=== PATIENT | male | born 1955 | race Caucasian/White ===

== ENCOUNTER → 2017-06-04 | Outpatient (CLI) | payer BC | LOC: FIMAGING 10:42 | PROVIDERS: ATTEND Physician Assistant Surgical | DX: C79.31 Secondary malignant neoplasm of brain (principal); R56.9 Unspecified convulsions; K76.9 Liver disease, unspecified ==

== ENCOUNTER → 2017-06-09 | Outpatient (CLI) | payer OTHER ==
[~2017-06-09] MED LIST: GADOBUTROL 10 ML VIAL IVP ONE
== END ==
LOC: FIMAGING 11:36
PROVIDERS: ATTEND Neurological Surgery
DX: K76.9 Liver disease, unspecified (principal); M48.061 Spinal stenosis, lumbar region without neurogenic claudication
CPT/HCPCS: A9585

== ENCOUNTER 2017-06-13 05:31 | Inpatient (IN) | payer OTHER ==
[2017-06-13] MEDS ORDERED: GADOBUTROL 10 ML VIAL IVP ONE (05:59)
[2017-06-13] MEDS ORDERED: CEFUROXIME 1,500 MG in NS 50 ML IV ONE (06:00)
[2017-06-13 06:15] LABS: PLATELET COUNT 225 10^3/uL (150-400)
[2017-06-13] MEDS ORDERED: LR 1,000 ML IV ONE (06:20)
[2017-06-13 06:24] LABS: INR 0.95 (0.83-1.16); PROTIME(PATIENT) 12.9 SEC (12.0-15.0)
--- NOTE | 2017-06-13 06:43 | PDHPUP ---
History & Physical Update H&P update statement: This history and physical update is based on an assessment of the patient which was completed after admission or registration (within 24 hours), but prior to the surgery/procedure. H&P update: H&P reviewed & patient examined, no change in patient's condition since H&P completed
[2017-06-13] MEDS ORDERED: BUPIVACAINE 0.25% 30 ML SDV ONE (06:44)
[2017-06-13] MEDS ORDERED: THROMBIN (BOVINE) 5,000 UNIT VIAL TP ONE (06:44)
[2017-06-13] MEDS ORDERED: GENTAMICIN SULFATE 80 MG/2 ML VIAL ONE ×4 (06:44→09:35)
[2017-06-13] MEDS ORDERED: AVITENE POWDER 1 GM JAR TP ONE ×3 (06:44→09:23)
[2017-06-13] MEDS ORDERED: BACITRACIN ZINC 14.2 GM OINTTUBE TP ONE (06:44)
[2017-06-13] MEDS ORDERED: POVIDONE-IODINE 30 GM OINTTUBE TP ONE (06:45)
[2017-06-13] MEDS ORDERED: MIDAZOLAM 2 MG/2 ML VIAL IVP ONE (07:00)
--- NOTE | 2017-06-13 07:00 | PDANEPAE ---
ANE History of Present Illness craniotomy ANE Past Medical History - Cardiovascular History Hx Hypertension: No Hx Arrhythmias: No Hx Chest Pain: No Hx Coronary Artery / Peripheral Vascular Disease: No Hx CHF / Valvular Disease: No Hx Palpitations: No - Pulmonary History Hx COPD: No Hx Asthma/Reactive Airway Disease: No Hx Recent Upper Respiratory Infection: No Hx Oxygen in Use at Home: No Hx Sleep Apnea: No Sleep Apnea Screening Result - Last Documented: Negative - Neurologic History Hx Cerebrovascular Accident: No Hx Seizures: No Hx Dementia: No Neurologic History Comment: Brain tumor. aphasia - Endocrine History Hx Diabetes: No Hypothyroid: No Hyperthyroid: No Obesity: mild - Renal History Hx Renal Disorders: No - Liver History Hx Hepatic Disorders: No - Neurological & Psychiatric Hx Hx Neurological and Psychiatric Disorders: No - Cancer History Hx Cancer: No - Congenital Disorder History Hx Congenital Disorders: No - GI History GERD: no Hx Gastrointestinal Disorders: No - Chronic Pain History Chronic Pain: No - Surgical History Prior Surgeries: bilateral ANGELA. hernia repair. appendectomy ANE Review of Systems Review of Systems: - Exercise capacity METS (RN): 5 METS ANE Patient History - Allergies Allergies/Adverse Reactions: Iodinated Contrast- Oral and IV Dye Allergy (Verified 06/10/17 12:59) - Home Medications Home Medications: Aspirin 81mg (*) 06/10/17 [Last Taken Unknown] Ibuprofen 06/10/17 [Last Taken Unknown] Simvastatin 06/10/17 [Last Taken Unknown] - Smoking Hx Smoking Status: Former smoker - Family Anes Hx Family Hx Anesthesia Complications: none ANE Labs/Vital Signs - Labs Result Diagrams: 06/13/17 06:10 06/13/17 06:10 - Vital Signs Height: 185.42 cm Weight: 95.254 kg ANE Physical Exam - Airway Neck exam: FROM Mallampati Score: Class 3 Mouth exam: poor dentition - Pulmonary Pulmonary: clear to auscultation - Cardiovascular Cardiovascular: regular rate and rhythym - ASA Status ASA Status: III ANE Anesthesia Plan Anesthesia Plan: general endotracheal anesthesia Lines/Monitors: arterial line
[2017-06-13] MEDS ORDERED: DEXAMETHASONE 4 MG/ML VIAL ONE (07:07)
[2017-06-13] MEDS ORDERED: PROPOFOL 200 MG/20 ML VIAL ONE ×3 (07:07→09:39)
[2017-06-13] MEDS ORDERED: CHLORHEXIDINE GLUC HIBICLENS 118 ML BTL TP ONE (07:54)
[2017-06-13] MEDS ORDERED: PROPOFOL/EMULSION 500 MG/50 ML BOTTLE IV ONE (08:15)
[2017-06-13] MEDS ORDERED: ONDANSETRON 4 MG/2 ML VIAL ONE ×2 (09:05→09:44)
[2017-06-13] MEDS ORDERED: HYDROGEN PEROXIDE 236 ML BOTTLE TP ONE (09:26)
[2017-06-13] MEDS ORDERED: PHENYLEPHRINE HCL 100 MCG/ML SYR ONE (10:05)
[2017-06-13] MEDS ORDERED: NALOXONE HCL 0.4 MG/ML INJ IVP PRN (10:38)
[2017-06-13] MEDS: LABETALOL HCL 5 MG/ML 20 ML MDV IVP PRN ×2 (10:40→10:59)
--- NOTE | 2017-06-13 10:45 | NEUSURGPN ---
Date of Surgery: 06/13/17 Post Op Day: 0 Assessment/Plan: s/p left pteryonal craniotomy resection mass prelim path glioma to ICU MRI in am Drain to bulb suction Keppra 750BID Decadron Q1 hour neuro checks Keep SBP<140 Call for change in neuro status Subjective: Doing well, speech fluent, pain well controlled Objective: AandO, PERRL, no facial asymmetry, speech fluent, follows all commands, MAEWx 4 5/5 Drain to bulb suction Incision c/d/i Neuro Check Frequency: Q1 Urinary Catheter in Place: Yes Urinary Catheter Indication: Other (Use Comment) (remove in am) Neurosurgery Physical Exam - Vitals, I&O, Labs I and O 06/12/17 06/13/17 06/14/17 05:59 05:59 05:59 Weight 95.254 kg Vital Signs Temp Pulse Resp BP Pulse Ox 36.6 C 76 16 164/98 H 94 06/13/17 07:08 06/13/17 07:08 06/13/17 07:08 06/13/17 07:08 06/13/17 07:08 Laboratory Results 06/13/17 06:10 06/13/17 06:10 ICD10 Worksheet Patient Problems: Problems Problem Status Onset Glioma Acute - ICD10 Problem Qualifiers (1) Glioma
[2017-06-13] MEDS ORDERED: ONDANSETRON 4 MG/2 ML VIAL IVP PRN (10:58)
[2017-06-13] MEDS ORDERED: BISACODYL 10 MG SUPP PR PRN (10:58)
[2017-06-13] MEDS ORDERED: ONDANSETRON DISINTEGRATING 4 MG TAB PO PRN (10:58)
[2017-06-13] MEDS ORDERED: niCARdipine/NACL 200 ML IV PRN (10:58)
[2017-06-13] MEDS ORDERED: MAG HYDROX/AL HYDROX/SIMETH 30 ML UDCUP PO PRN (10:58)
[2017-06-13] MEDS ORDERED: MAGNESIUM HYDROXIDE 30 ML UDCUP PO PRN (10:58)
[2017-06-13] MEDS ORDERED: LACTULOSE 20 GM/30 ML UDCUP PO PRN (10:58)
[2017-06-13] MEDS ORDERED: fentaNYL 100 MCG/2 ML INJ ONE (11:00)
[2017-06-13] MEDS ORDERED: NS W/ 20 KCl/L 1,000 ML IV SCH (11:00)
[2017-06-13] MEDS: fentaNYL 100 MCG/2 ML INJ IVP PRN ×2 (11:02→11:09)
--- NOTE | 2017-06-13 11:16 | GOP ---
[f rep st] OPERATIVE REPORT DATE OF OPERATION: 06/13/2017 SURGEON: Mikayla Harrison DO NEUROSURGEON: Mikayla Harrison DO. STOCK HANGER: Kishore Dunn PA-C. PREOPERATIVE DIAGNOSIS: Left temporal mass. POSTOPERATIVE DIAGNOSIS: 1. Left temporal mass. 2. Primary brain mass glioma, unknown grade. 3. Seizure. PROCEDURE PERFORMED: Stealth stereotactic image guidance and Sonopet. FINDINGS: SPECIMENS: To Pathology. ESTIMATED BLOOD LOSS: 50 mL. INDICATIONS: This is a 62-year-old male who has had intermittent focal aphasia, likely a seizure, fr om a left temporal enhancing lesion. He underwent a metastatic workup, which was negative. He has a new, slightly smaller, daughter lesion deeper into the anterior temporal lobe. He elected to move f orward with resection biopsy. DESCRIPTION OF PROCEDURE: He was identified, consented. Sites were marked. Brought to the operatin g room, anesthetized under general endotracheal anesthesia. Head was placed in a Devi headholder to 80 pounds of pressure. Bump was placed under the shoulder. Patient was positioned. All pressur e points were appropriately padded. The [employer] machine was registered to approximately 2 mm of accu racy, and the linear-shaped craniotomy incision was planned based upon the preoperative plan. Hair w as clipped with the OR clippers. He was prepped and draped in the usual sterile fashion. Incision was anesthetized with 0.5% Marcaine with epinephrine. Incision was made with a 10 blade. H emostasis was obtained with bipolar cautery. We used the Bovie to dissect through the temporalis fas tejal, and then Sophy clips were placed on the scalp. Retracting the temporalis muscle anterior and po sterior, we marked the craniotomy based upon the preoperative plan, and a 14 mm [place] bur hole was performed. We then extended this With a B1 with a footplate to create a craniotomy flap. This was p laced on the back table. The wire pass was used to create dural tack-up stitches. We then used 4-0 Nurolon to create circumferential dural tack-ups. We then planned the dural opening based upon the p reoperative plan, and the dura was tented with a 4-0 Nurolon, and the dura was opened with a 15 blade . This was extended with a Shae and then, finally, Ily[place]um scissors, reflected anteriorly. The corridor for where the tumor reached the surface was just between some vessels of the sylvian fis sure, so corticotomy was marked based upon the preoperative plan using Stealth, and bipolar was used to create a corticotomy, an 11 blade and then, using the sucker and bipolar, we came down into the mor. This was sent for pathology, and further tumor was removed. We then used the CUSA to stereotac tically resect, checking the borders of all the radiographic tumor, as well as follow down to what ap peared to be this very, very small new enhancing daughter lesion. Once we had fully resected, using the Sonopet on appropriate settings, meticulous hemostasis was obtained with Gelfoam, Avitene, and so me peroxide to attempt to protect the sylvian vessels, which were not violated. Once meticulous hemo stasis had been obtained, a single layer of Surgicel was placed. After copiously irrigating with several liters of gentamicin-infused saline, we then reapproximated t he dura; however, it had retracted, and so I reapproximated the dura with 4-0 Nurolon and then placed DuraGen, replaced the bone flap with Synthes plates and 4 mm screws, and reapproximated the fascia o f the temporalis fascia with 2-0 Vicryl pop-offs. Trocar to drain out superiorly, placed it in the s ubgaleal space. Closed the galea with 2-0 Vicryl pop-offs. The skin was closed with radha. The d rain was sutured in with a 2-0 Prolene and placed to bulb suction. Neuromonitoring remained stable throughout. Both SSEPs and motors on low levels, given he had had no motor seizure, and he was stable throughout from an anesthesia perspective. He was removed from the [place] headholder after dressing the wound with bacitracin and Telfa, stapled down. Again, there were no complications. The neuromonitoring was stable. FLUID: 750 mL crystalloid. URINE OUTPUT: Not recorded. DRAINS: One HERNANDO in the subgaleal space to bulb suction. COMPLICATIONS: None. /[id number]/MODL
[2017-06-13] MEDS: levETIRAcetam 500 MG TAB PO SCH ×2 (12:18→20:12)
[2017-06-13] MEDS: DEXAMETHASONE 4 MG/ML VIAL IVP SCH ×2 (12:34→17:48)
[2017-06-13] MEDS: HYDROmorphONE/DILAUDID 1 MG/ML INJ IVP PRN ×3 (12:37→20:00)
--- NOTE | 2017-06-13 13:56 | POSTANESTH ---
Post Anesthetic Evaluation Cardiovascular Status: Normal, Stable Respiratory Status: Normal, Stable Level of Consciousness/Mental Status: Can Participate in Eval Pain Control: Adequate, Prn Tx Ordered Nausea/Vomiting Control: Adequate, Prn Tx Ordered Complications Possibly Related to Anesthesia: None Noted
[2017-06-13] MEDS: CEFUROXIME 1,500 MG in NS 50 ML IV SCH ×2 (13:58→21:35)
[2017-06-13] MEDS ORDERED: POLYETHYLENE GLYCOL 3350 17 GM PKT PO PRN (16:00)
[2017-06-13] MEDS: OXYCODONE/APAP 5/325 TAB PO PRN ×2 (16:36→20:33)
[2017-06-13] MEDS: FAMOTIDINE 20 MG TAB PO SCH (20:12)
[2017-06-13] MEDS: SENNOSIDES/DOCUSATE SODIUM TAB PO SCH (20:12)
[2017-06-13] MEDS ORDERED: FAMOTIDINE 20 MG/NACL 50 ML IV SCH (21:00)
[2017-06-14] MEDS: DEXAMETHASONE 4 MG/ML VIAL IVP SCH ×3 (00:18→11:36)
[2017-06-14] MEDS: oxyCODONE IR 5 MG TAB PO PRN ×2 (00:18→04:36)
[2017-06-14 06:46] LABS: PLATELET COUNT 210 10^3/uL (150-400)
[2017-06-14] MEDS ORDERED: OXYCODONE/APAP 5/325 TAB PO PRN (07:36)
[2017-06-14] MEDS: diphenhydrAMINE 25 MG CAP PO PRN ×2 (08:24→11:36)
--- NOTE | 2017-06-14 08:31 | NEUSURGPN ---
Date of Surgery: 06/13/17 Post Op Day: 1 Assessment/Plan: s/p left pteryonal craniotomy resection mass prelim path glioma POD#1 -Post op MRI pending this am -Patient itching with oxycodone, will change to PO Dilaudid -Keppra 750BID -Decadron -PT/OT/ST eval and treat -HERNANDO dc'd, tip intact, insertion site sutured -Patient neurologically stable throughout the night -Transfer to floor -Q4hr neuro checks -Patient discussed with Dr Harrison Please call neurosurgery with any questions/concerns Subjective: Patient doing well, itching with PO medications Objective: AxO x3 PERRLA EOMI CN2-12 grossly intact No droop 5/5 BUE, BLE Dressing CDI HERNANDO present Neuro Check Frequency: per routine Urinary Catheter in Place: No Catheter Insertion Date: 06/13/17 - Physician Discussed Patient with : [facility] Physical Exam - Vitals, I&O, Labs I and O 06/13/17 06/14/17 06/15/17 05:59 05:59 05:59 Intake Total 4576 Output Total 5213 Balance -637 Weight 95.25 kg Intake: Oral (ml) 2630 IV Intake (ml) 800 IV Infused (ml) 1146 Cefuroxime 1,500 mg In Ns 55 50 ml @ 200 mls/hr IV Q8HRS IVAN Rx#:[id number] NS W/ 20 KCl/L 1,000 ml @ 953 100 mls/hr IV CONT IVAN Rx#:[id number] niCARdipine/NACL 200 ml @ 138 Titrate IV PRN PRN Rx#: [id number] Output: Urine (ml) 5140 Catheter 5140 Estimated Blood Loss (ml) 50 HERNANDO Drain Output (ml) 23 Left Head Dallin Rhodes 8 Right Head Dallin Rhodes 15 Other: Intake Quantity Yes Sufficient Vital Signs Temp Pulse Resp BP Pulse Ox 36.8 C 71 17 139/80 H 92 06/14/17 08:00 06/14/17 08:00 06/14/17 08:00 06/14/17 08:00 06/14/17 08:00 Laboratory Results 06/14/17 06:20 06/14/17 06:20 ICD10 Worksheet Patient Problems: Problems Problem Status Onset Glioma Acute
[2017-06-14] MEDS ORDERED: GADOBUTROL 10 ML VIAL IVP ONE (08:48)
[2017-06-14] MEDS: SENNOSIDES/DOCUSATE SODIUM TAB PO SCH ×2 (09:22→20:43)
[2017-06-14] MEDS: levETIRAcetam 500 MG TAB PO SCH ×2 (09:22→20:42)
[2017-06-14] MEDS: FAMOTIDINE 20 MG TAB PO SCH ×2 (09:22→20:44)
[2017-06-14] MEDS: HYDROmorphONE/DILAUDID 2 MG TAB PO PRN ×3 (11:36→20:44)
[2017-06-14] MEDS ORDERED: ALBUMIN 5% 500 ML BOTTLE IV ONE (14:03)
--- NOTE | 2017-06-14 14:56 | ASMTCMCOM ---
CM Note CM Note Notes: 57 year old male admitted for a brain mass-glioma. POD# 1 of a crani and tumor resect. Therapies to eval. CM to follow for possible discharge needs. Date Signed: 06/14/2017 02:56 PM Electronically Signed By:Carmita Carpio LCSW
[2017-06-14] MEDS ORDERED: *MD ORDERING ONLY-DEXAMETHASONE TAPER PO SCH (16:30)
[2017-06-14] MEDS: DEXAMETHASONE 4 MG TAB PO SCH (17:00)
[2017-06-14] MEDS: ACETAMINOPHEN 325 MG TAB PO PRN (20:43)
[2017-06-15] MEDS: DEXAMETHASONE 4 MG TAB PO SCH ×2 (00:51→07:48)
[2017-06-15] MEDS: HYDROmorphONE/DILAUDID 2 MG TAB PO PRN ×2 (00:53→07:58)
[2017-06-15 06:49] VITALS: BP 140/82; PULSE 66; RESP 18; TEMP 97.7; O2SAT 91
[2017-06-15] MEDS: SENNOSIDES/DOCUSATE SODIUM TAB PO SCH (07:46)
[2017-06-15] MEDS: levETIRAcetam 500 MG TAB PO SCH (07:58)
[2017-06-15] MEDS: FAMOTIDINE 20 MG TAB PO SCH (07:59)
[2017-06-15] MEDS ORDERED: TETRAHYDROZOLINE 0.05% 15 ML OPHT.BTL OP PRN (08:00)
[2017-06-15] MEDS: ACETAMINOPHEN 325 MG TAB PO PRN (08:01)
--- NOTE | 2017-06-15 08:01 | NEUSURGPN ---
Date of Surgery: 06/13/17 Post Op Day: 2 Assessment/Plan: s/p left pteryonal craniotomy resection mass prelim path glioma POD#2 -Post op MRI with minimal residual tumor, 1.5cm acute cortical infarct-reviewed by Dr Harrison -Patients pain controlled with PO Dilaudid -Continue Keppra 750BID -Oral Decadron taper -PT/OT/ST eval and treat -Dressing removed, radha present, ok for patient to shower today -Patient neurologically stable throughout the night -Patient will dc home today -Patient discussed with Dr Harrison Please call neurosurgery with any questions/concerns Subjective: Patient denies any complaints, pain well controlled Objective: AxO x3 PERRLA EOMI CN2-12 grossly intact No droop 5/5 BUE, BLE Incision CDI Neuro Check Frequency: per routine Urinary Catheter in Place: No Catheter Insertion Date: 06/13/17 - Physician Discussed Patient with : [facility] Physical Exam - Vitals, I&O, Labs I and O 06/14/17 06/15/17 06/16/17 05:59 05:59 05:59 Intake Total 4576 Output Total 5213 300 Balance -637 -300 Weight 95.25 kg Intake: Oral (ml) 2630 IV Intake (ml) 800 IV Infused (ml) 1146 Cefuroxime 1,500 mg In Ns 55 50 ml @ 200 mls/hr IV Q8HRS IVAN Rx#:[id number] NS W/ 20 KCl/L 1,000 ml @ 953 100 mls/hr IV CONT IVAN Rx#:[id number] niCARdipine/NACL 200 ml @ 138 Titrate IV PRN PRN Rx#: [id number] Output: Urine (ml) 5140 300 Catheter 5140 Urinal 300 Estimated Blood Loss (ml) 50 HERNANDO Drain Output (ml) 23 Left Head Dallin Rhodes 8 Right Head Dallin Rhodes 15 Other: Intake Quantity Yes Yes Sufficient Number of Voids Toilet 2 Vital Signs Temp Pulse Resp BP Pulse Ox 36.5 C 66 18 140/82 H 91 L 06/15/17 06:00 06/15/17 06:00 06/15/17 06:00 06/15/17 06:00 06/15/17 06:00 Laboratory Results 06/14/17 06:20 06/14/17 06:20 ICD10 Worksheet Patient Problems: Problems Problem Status Onset Glioma Acute
[2017-06-15] MEDS ORDERED: DICLOFENAC SODIUM 75 MG TAB PO SCH (09:00)
[2017-06-15] MEDS ORDERED: Herbals/Supplements -Info Only PO SCH (09:00)
[2017-06-15] MEDS ORDERED: MULTIVITAMINS 1 EACH TAB PO SCH (09:00)
[2017-06-15] MEDS ORDERED: DEXAMETHASONE 4 MG TAB PO SCH (16:30)
[2017-06-15] MEDS ORDERED: NON-FORMULARY NEW DRUG (Simvastatin [Zocor] 20 MG) PO SCH (21:00)
[2017-06-15] MEDS ORDERED: ATORVASTATIN CALCIUM 40 MG TAB PO SCH (21:00)
[2017-06-16] MEDS ORDERED: ENOXAPARIN 40 MG/0.4 ML SYR SC SCH (09:00)
[2017-06-16] MEDS ORDERED: DEXAMETHASONE 2 MG TAB PO SCH (16:45)
[2017-06-17] MEDS ORDERED: DEXAMETHASONE 2 MG TAB PO SCH (16:45)
[2017-06-18] MEDS ORDERED: DEXAMETHASONE 2 MG TAB PO SCH (16:45)
== END 2017-06-15 08:49 | disposition home or self-care (01) | DRG 25 ==
LOC: F2N 05:31 → F3N 05:31 → F2N 11:55
PROVIDERS: ADMIT Neurological Surgery; ATTEND Neurological Surgery
PROC: 4A1004G Monitoring of Central Nervous Electrical Activity, Intraoperative, Open Approach (ICD-10-PCS; principal; 2017-06-13 07:15)
PROC: 00B00ZX Excision of Brain, Open Approach, Diagnostic (ICD-10-PCS; principal; 2017-06-13 07:15)
DX: C71.2 Malignant neoplasm of temporal lobe (principal); I63.9 Cerebral infarction, unspecified; Z96.643 Presence of artificial hip joint, bilateral
CPT/HCPCS: 88323-90; 88342; 92523-GN; 97161-GP; 97165-GO; A9585; C1713; J0171; J0697; J1100; J1170; J1200; J2250; J2370; J2405; J2704; J3010; P9041

== ENCOUNTER 2017-07-13 08:24 | Inpatient (IN) | payer OTHER ==
[~2017-07-13 08:24] MED LIST changes: +CEFUROXIME 1,500 MG in STERILE WATER INJ 17 ML IV ONE; -GADOBUTROL 10 ML VIAL IVP ONE
[2017-07-13] MEDS ORDERED: BUPIVACAINE 0.25% 30 ML SDV ONE (09:05)
[2017-07-13] MEDS ORDERED: THROMBIN (BOVINE) 20,000 UNIT VIAL TP ONE (09:05)
[2017-07-13] MEDS ORDERED: BACITRACIN ZINC 14.2 GM OINTTUBE TP ONE (09:05)
[2017-07-13] MEDS ORDERED: GENTAMICIN SULFATE 80 MG/2 ML VIAL ONE ×3 (09:06→16:28)
[2017-07-13] MEDS ORDERED: POVIDONE-IODINE 30 GM OINTTUBE TP ONE (09:06)
[2017-07-13] MEDS ORDERED: AVITENE POWDER 1 GM JAR TP ONE (09:06)
[2017-07-13] MEDS ORDERED: MANNITOL 20% 100 GM/500 ML BAG IV ONE (09:06)
[2017-07-13] MEDS ORDERED: LIDOCAINE 1% 2 ML INJ ONE (11:54)
[2017-07-13] MEDS ORDERED: GADOBUTROL 10 ML VIAL IVP ONE (11:55)
[2017-07-13 12:29] LABS: INR 1.02 (0.83-1.16); PROTIME(PATIENT) 13.6 SEC (12.0-15.0)
[2017-07-13] MEDS ORDERED: LR 1,000 ML IV ONE (12:34)
[2017-07-13] MEDS ORDERED: LIDOCAINE 1% 2 ML INJ ID PRN (12:34)
--- NOTE | 2017-07-13 13:12 | PDHPUP ---
History & Physical Update H&P update statement: This history and physical update is based on an assessment of the patient which was completed after admission or registration (within 24 hours), but prior to the surgery/procedure. H&P update: H&P reviewed & patient examined H&P changes: Patient's MRI brain completed at Dr. oSlorio's office for cyberknife radiation demonstrated recurrence of brain mass within 2-3 weeks of surgery. Patient has been doing well with no new symptoms. His case was discussed at [facility] tumor board and it was recommended to proceed with re-do craniotomy for resection of the mass due to the recurrence. The patient was call and plan discussed and agreed upon. He is here today to proceed with left re-do craniotomy for re-resection of mass. Risks, benefits, procedure, were discussed in detail. Patient and is aware that speech may be affected. Patient has signed consents and is ready to proceed.
[2017-07-13] MEDS ORDERED: MIDAZOLAM 2 MG/2 ML VIAL IVP ONE (13:14)
[2017-07-13] MEDS ORDERED: MIDAZOLAM 2 MG/2 ML VIAL ONE (13:15)
--- NOTE | 2017-07-13 13:16 | PDANEPAE ---
ANE History of Present Illness L craniotomy for reexcision tumor ANE Past Medical History - Cardiovascular History Hx Hypertension: No Hx Arrhythmias: No Hx Chest Pain: No Hx Coronary Artery / Peripheral Vascular Disease: No Hx CHF / Valvular Disease: No Hx Palpitations: No - Pulmonary History Hx COPD: No Hx Asthma/Reactive Airway Disease: No Hx Recent Upper Respiratory Infection: No Hx Oxygen in Use at Home: No Hx Sleep Apnea: No Sleep Apnea Screening Result - Last Documented: Negative - Neurologic History Hx Cerebrovascular Accident: No Hx Seizures: No Hx Dementia: No Neurologic History Comment: Brain tumor.pt reports no siezures. aphasia - Endocrine History Hx Diabetes: No - Renal History Hx Renal Disorders: No - Liver History Hx Hepatic Disorders: No - Neurological & Psychiatric Hx Hx Neurological and Psychiatric Disorders: Yes Neurological / Psychiatric History Comment: brain tumor - Cancer History Hx Cancer: Yes Cancer History Comment: brain tumor - Congenital Disorder History Hx Congenital Disorders: No - GI History Hx Gastrointestinal Disorders: No - Other Health History Other Health History: missing teeth - Chronic Pain History Chronic Pain: No - Surgical History Prior Surgeries: bilateral ANGELA. hernia repair. appendectomy ANE Review of Systems Review of systems is: negative Review of Systems: - Exercise capacity METS (RN): 5 METS ANE Patient History - Allergies Allergies/Adverse Reactions: Iodinated Contrast- Oral and IV Dye Allergy (Verified 06/10/17 12:59) - Home Medications Home medications: home medication list seen and reviewed Home Medications: Herbals/Supplements -Info Only 1 ea PO DAILY 06/13/17 [Last Taken Unknown] Multivitamins [Multivitamin (*)] 1 each PO DAILY 06/13/17 [Last Taken 2 Weeks Ago ~05/30/17] Tetrahydrozoline 0.05% [Visine (*)] 1 drop OP DAILY PRN 06/13/17 [Last Taken Unknown] - NPO status NPO Status: no food or drink >8 hours - Anes Hx Anes Hx: no prior problems - Smoking Hx Smoking Status: Former smoker - Family Anes Hx Family Anes Hx: none Family Hx Anesthesia Complications: none ANE Labs/Vital Signs - Vital Signs Height: 185.42 cm Weight: 92.986 kg ANE Physical Exam - Airway Neck exam: FROM Mallampati Score: Class 2 Mouth exam: poor dentition - Pulmonary Pulmonary: no respiratory distress - Cardiovascular Cardiovascular: regular rate and rhythym - ASA Status ASA Status: III ANE Anesthesia Plan Anesthesia Plan: general endotracheal anesthesia Lines/Monitors: arterial line
[2017-07-13] MEDS ORDERED: LIDOCAINE 2% 100 MG/5 ML SYR ONE (13:33)
[2017-07-13] MEDS ORDERED: ROCURONIUM 50 MG/5 ML VIAL ONE (13:33)
[2017-07-13] MEDS ORDERED: DEXAMETHASONE 4 MG/ML VIAL ONE (13:33)
[2017-07-13] MEDS ORDERED: ONDANSETRON 4 MG/2 ML VIAL ONE (13:33)
[2017-07-13] MEDS ORDERED: PROPOFOL 200 MG/20 ML VIAL ONE ×2 (13:34→14:49)
[2017-07-13] MEDS ORDERED: fentaNYL 250 MCG/5 ML INJ ONE (13:34)
[2017-07-13] MEDS ORDERED: PROPOFOL/EMULSION 500 MG/50 ML BOTTLE IV ONE (14:12)
[2017-07-13] MEDS ORDERED: levETIRAcetam 1000MG/NACL 100 ML IV ONE (14:30)
[2017-07-13] MEDS ORDERED: ROCURONIUM 100 MG/10 ML VIAL ONE (14:31)
[2017-07-13] MEDS ORDERED: REMIFENTANIL HCL 1 MG VIAL ONE (14:49)
[2017-07-13] MEDS ORDERED: DEXAMETHASONE 4 MG/ML VIAL IVP PRN (15:37)
[2017-07-13] MEDS ORDERED: ONDANSETRON 4 MG/2 ML VIAL IVP PRN ×2 (15:37→17:29)
[2017-07-13] MEDS ORDERED: NALOXONE HCL 0.4 MG/ML INJ IVP PRN (15:37)
[2017-07-13] MEDS ORDERED: MEPERIDINE 25 MG/ML SYR IVP PRN (15:37)
[2017-07-13] MEDS ORDERED: ACETAMINOPHEN 500 MG TAB PO PRN (15:37)
[2017-07-13] MEDS ORDERED: HYDROCODONE/APAP 5/325 TAB PO PRN (15:37)
[2017-07-13] MEDS ORDERED: PROMETHAZINE HCL 25 MG/ML INJ IVP PRN (15:37)
[2017-07-13] MEDS ORDERED: OXYCODONE/APAP 5/325 TAB PO PRN (15:37)
[2017-07-13] MEDS ORDERED: LABETALOL HCL 5 MG/ML 20 ML MDV IVP PRN (15:37)
--- NOTE | 2017-07-13 15:40 | POSTANESTH ---
Post Anesthetic Evaluation Cardiovascular Status: Normal, Stable, Similar to Pre-Op Cond Respiratory Status: Normal, Stable, Similar to Pre-op Cond. Level of Consciousness/Mental Status: Can Participate in Eval, Mildly Sleepy, Arousable Pain Control: Adequate, Prn Tx Ordered Nausea/Vomiting Control: Adequate, Prn Tx Ordered Complications Possibly Related to Anesthesia: None Noted
[2017-07-13] MEDS ORDERED: MAGNESIUM HYDROXIDE 30 ML UDCUP PO PRN (17:29)
[2017-07-13] MEDS ORDERED: POLYETHYLENE GLYCOL 3350 17 GM PKT PO PRN (17:29)
[2017-07-13] MEDS ORDERED: LACTULOSE 20 GM/30 ML UDCUP PO PRN (17:29)
[2017-07-13] MEDS ORDERED: TETRAHYDROZOLINE 0.05% 15 ML OPHT.BTL OP PRN (17:29)
[2017-07-13] MEDS ORDERED: ACETAMINOPHEN 325 MG TAB PO PRN (17:29)
[2017-07-13] MEDS ORDERED: BISACODYL 10 MG SUPP PR PRN (17:29)
[2017-07-13] MEDS ORDERED: NS W/ 20 KCl/L 1,000 ML IV SCH (17:30)
[2017-07-13] MEDS ORDERED: *MD ORDERING ONLY-DEXAMETHASONE TAPER PO SCH (17:30)
--- NOTE | 2017-07-13 17:38 | GOP ---
[f rep st] OPERATIVE REPORT DATE OF OPERATION: SURGEON: Mikayla Harrison DO NEUROSURGEON: Mikayla Harrison DO HANDLE TURNER: GÓMEZ Martínez. 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 POSTOPERATIVE DIAGNOSIS: 1. 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 2. Seizure disorder. PROCEDURE PERFORMED: FINDINGS: SPECIMENS: To frozen and permanent. ESTIMATED BLOOD LOSS: 150 mL. INDICATIONS: This is a 62-year-old male who approximately 2-1/2 weeks ago had resection of what was a grade 3 IDH1 wild-type tumor. He had just a wisp of what was questionably residual, and on repeat MRI at 2 weeks had a significant recurrence. DESCRIPTION OF PROCEDURE: He was brought to the operating room for re-resection he was identified, c onsented. Sites were marked. Brought to the operating room, anesthetized under general endotracheal tube anesthesia. Head was placed in a Devi longwall headgate operator at 80 pounds of pressure. A bump was pl aced under the shoulder. Head was affixed in the fiducials were registered to 1.6 mm of accuracy and verified to be accurate. The incision site was remarked. Hair was clipped with the OR clippers. He was prepped and draped in the usual sterile fashion. Incision was reanesthetized with 0.5% Marcaine with epinephrine. Incisi on was made with a 10 blade, and using the Bovie and the periosteal elevator retractor, we resected t he scar tissue, retracting the scalp anteriorly and posteriorly placing cerebellar retractors. We di d have to extend the incision slightly to give us better anterior access. We then used a screwdriver to remove the screws from the cranial fixation plate. Removed the plate and meticulous hemostasis w as obtained. We then cut the stay sutures and retracted the dura anteriorly. As per the Ruth cortez, we did need to extend the anterior craniotomy for planned anterior temporal lobectomy, and so B1 with footplate was placed, and this extension was performed and the bone edges were appropriately marked for reapproximation. We then resected the remainder of the dura, as it was well invested in t he sylvian vessels, peeling this off gently with the and once we had access, using the Stea lth we demarcated the superior border and the posterior border of the tumor and then placed a ruler a nterior to the anterior tip and this was approximately 5 cm of anterior temporal tip. Unfortunately, this tumor was immediately spanning and surrounded by the sylvian vessels, and so we very gently and under microscope, skeletonized the sylvian vessels using the SONOPET to resect tumor after having se nt a frozen. The frozen did come back as GBM. Once we had completely performed a 5 cm anterior temp oral lobectomy, and there was a portion that came to the inferior frontal gyrus, this portion was res ected as well. We skeletonized the sylvian vessels and using Stealth verified that we had fully rese cted all of the enhancing region as well as the anterior temporal tip, meticulous hemostasis was obta ined with Gelfoam and Avitene. Once there was meticulous hemostasis and copious irrigation with gent amicin-infused saline irrigated completely clear, we lined the entire remainder of the cavity with a single layer of Surgicel. Placed DuraGen as a replacement for the dura that had been resected, and r eplaced the bone flap with 4 and 5 mm titanium plates and screws. We then copiously irrigated again with gentamicin-infused saline, trocar to drain out inferiorly. Closed the temporalis fascia with 2- 0 Vicryl pop-offs, subcutaneous layer 2-0 Vicryl pop-offs. The skin was closed with 3-0 running nylo n. The drain was sutured with 2-0 Vicryl pop-off placed to bulb suction. Wound was dressed with christian itracin and Telfa stapled down. Patient was removed from Devi longwall headgate operator. Neuro monitoring rem ained stable throughout the entire resection. FLUIDS: 1 L crystalloid. URINE OUTPUT: 350 mL. DRAINS: One HERNANDO in the subfascial space to bulb suction. COMPLICATIONS: None. /[id number]/MODL
[2017-07-13] MEDS ORDERED: fentaNYL 100 MCG/2 ML INJ ONE ×4 (17:39→19:12)
[2017-07-13] MEDS ORDERED: HYDROmorphONE/DILAUDID 1 MG/ML INJ ONE ×3 (17:39→19:12)
[2017-07-13] MEDS: fentaNYL 100 MCG/2 ML INJ IVP PRN ×5 (17:43→19:18)
[2017-07-13] MEDS: HYDROmorphONE/DILAUDID 1 MG/ML INJ IVP PRN ×8 (17:44→23:26)
--- NOTE | 2017-07-13 17:44 | POSTOPPROG ---
Post Op Note Date of Operation: 07/13/17 Surgeon: Mikayla Harrison Red Leader: Blanca Keys PA-C Anesthesiologist: Devang Lemons Anesthesia: GET(General Endotracheal) Pre-op Diagnosis: Brain mass Post-op Diagnosis: Brain mass Procedure: Re-do left craniotomy for resection of mass Inf/Abcess present in the surg proc area at time of surgery?: No Depth: Deep Incisional (Fascial) EBL: 100-500 Drains: Dallin Rhodes Plan Plan: 62 yo male s/p left re-do craniotomy for resection of mass - neuro checks every hour - maintain SBP < 140 - HERNANDO drain subgaleal - postop MRI brain in am - Keppra - Decadron taper - follow path - PT/OT/DIRECTOR OF ACCREDITATION - SCDs/TEDs, Lovenox to start POD#3 - please contact neurosurgery with any changes in neuro status/exam Exam Patient seen in recovery. Awake. Alert. PERRL Following commands, COLÓN Incision with dressing c/d/i
[2017-07-13] MEDS ORDERED: LABETALOL HCL 5 MG/ML 20 ML MDV ONE (18:10)
[2017-07-13] MEDS: niCARdipine/NACL 200 ML IV PRN ×2 (19:52→23:23)
[2017-07-13] MEDS: levETIRAcetam 500 MG TAB PO SCH (20:16)
[2017-07-13] MEDS: DEXAMETHASONE 4 MG TAB PO SCH (20:18)
[2017-07-13] MEDS: FAMOTIDINE 20 MG TAB PO SCH (20:19)
[2017-07-13] MEDS: SENNOSIDES/DOCUSATE SODIUM TAB PO SCH (20:56)
[2017-07-13] MEDS: CEFUROXIME 1,500 MG in STERILE WATER INJ 17 ML IV SCH (21:40)
[2017-07-14] MEDS: HYDROmorphONE/DILAUDID 2 MG TAB PO PRN ×5 (00:07→20:05)
[2017-07-14] MEDS: DEXAMETHASONE 4 MG TAB PO SCH ×4 (02:08→20:05)
[2017-07-14 03:18] LABS: PLATELET COUNT 237 10^3/uL (150-400)
[2017-07-14] MEDS: CEFUROXIME 1,500 MG in STERILE WATER INJ 17 ML IV SCH (06:22)
[2017-07-14] MEDS: levETIRAcetam 500 MG TAB PO SCH ×2 (08:58→20:06)
[2017-07-14] MEDS: SENNOSIDES/DOCUSATE SODIUM TAB PO SCH ×2 (08:59→20:06)
[2017-07-14] MEDS: FAMOTIDINE 20 MG TAB PO SCH ×2 (08:59→20:05)
--- NOTE | 2017-07-14 10:07 | SOAPPROG ---
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 Objective: Vital Signs Temp Pulse Resp BP Pulse Ox 36.5 C 74 14 120/58 L 94 07/14/17 05:00 07/14/17 06:00 07/14/17 06:00 07/14/17 06:00 07/14/17 06:00 Laboratory Results 07/14/17 03:10 07/14/17 03:10 07/13/17 07/14/17 07/15/17 05:59 05:59 05:59 Intake Total 3810 Output Total 3170 Balance 640 PT 13.6 SEC (12.0-15.0) 07/13/17 12:07 INR 1.02 (0.83-1.16) 07/13/17 12:07 awake, alert PERRL, no facial droop mixed receptive and expressive dysphasia MINI x 4 C/D/I ICD10 Worksheet Patient Problems: Problems Problem Status Onset Glioma Acute
[2017-07-14] MEDS ORDERED: LABETALOL HCL 5 MG/ML 20 ML MDV IV PRN (11:10)
[2017-07-14] MEDS: HYDROmorphONE/DILAUDID 1 MG/ML INJ IVP PRN (12:06)
[2017-07-14] MEDS ORDERED: GADOBUTROL 10 ML VIAL IVP ONE (12:36)
--- NOTE | 2017-07-14 14:51 | ASMTCASEMG ---
Living Arrangements What is your living Answers: With Spouse arrangement? Who do you live with? Type Of Residence What kind of residence do Answers: House you live in? Discharge Plan Comments Coordination Status Comments Notes: Patient is a 62yo male who was admitted for a re-do craniotomy as a result of the mass reoccurrance. OT/PT/SPL have been ordered. OT is recommending inpatient rehab. Awaiting PT/SPL evals. D/C plan TBD. CM will follow. Date Signed: 07/14/2017 02:50 PM Electronically Signed By:Norma Hand LCSW
--- NOTE | 2017-07-14 19:18 | GCON ---
[f rep st] CONSULTATION CRITICAL CARE CONSULTATION. DATE OF CONSULTATION: 07/14/2017 REASON FOR CONSULTATION: Intensive care unit evaluation and medical management following repeat cran iotomy for a glioblastoma. HISTORY: The patient is a 62-year-old gentleman who presented a little over a month ago with neurolo gic symptoms. Workup showed a left temporal mass. This was operated on 1 month ago with craniotomy and removal of the mass. 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 He recently had an outpatient MRI for CyberKnife radiation treatment. This demonstrated rapid recurrence of the brain mass several weeks after surgery. He was thus readmitted for surgical planning. This again documented recurrence. He was taken to the operating room. He has had some ne urologic deficits, especially word-finding issues postoperatively. Followup MRI done this morning sh ows postoperative changes, no residual abnormal enhancement, and some changes suggesting acute infarc t posterior to the operative bed. PAST MEDICAL HISTORY: Largely unremarkable. There is no history of hypertension, heart disease, tu g disease, etc. MEDICATION: He has been on no medications other than Keppra and p.r.n. medications prior to admiss n. SOCIAL HISTORY: The patient is , lives in [place]. He did smoke cigarettes in the past bu t quit smoking over 10 years ago. Significant alcohol is negative. FAMILY HISTORY: Negative/noncontributory. REVIEW OF SYSTEMS: Unobtainable currently. Reviewed in his previous records, negative. PHYSICAL EXAMINATION: GENERAL: Reveals a gentleman who appears to be resting comfortably in bed. V ITAL SIGNS: Blood pressure is 140/80, heart rate 65 with sinus rhythm on the monitor. Respiratory r ate 18. He is on room air, saturations are 91%. HEENT: He definitely has word-finding problems and cannot complete sentences. Pupils appear equal. CHEST: Clear. There are no abnormal sounds. HEA RT: Regular in rate and rhythm without significant murmurs or gallops. ABDOMEN: Soft, nontender. Bowel sounds are present. EXTREMITIES: Unremarkable for edema, cords, or tenderness. He appears to move all extremities equally. 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 Decreased coordination is suspect ed related to the right upper extremity. He was not ambulated. NEUROLOGIC: Speech is garbled, alth ough he is quite alert, and tries to respond. LABORATORY: White blood cell count is 8,900, hematocrit 34, platelets 237,000. PT and PTT were norm al on admission. Basic metabolic panel is within normal limits. Glucose is 138. 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 Status post 2nd resection . Hemodynamically he is stable. Neurologically, he has word-finding problems and appears to have zaragoza d a stroke posterior to the surgical bed. This may be related to spasm (?). PLAN: The patient will be kept in the intensive care unit. Neuro checks will be maintained. Steroi ds will be continued. Appropriate pain control will be maintained. Enoxaparin will be started on bruary 10. He will be on SCDs until then. Pepcid is being given. He has labetalol and nicardipine for blood pressure if needed. Keppra will be continued. Laboratory will be followed. Further plans and recommendations will be made based on his progress over the next 12-24 hours. /[id number]/MODL
[2017-07-15] MEDS: HYDROmorphONE/DILAUDID 2 MG TAB PO PRN ×6 (00:43→23:33)
[2017-07-15] MEDS: DEXAMETHASONE 4 MG TAB PO SCH ×4 (00:43→19:40)
--- NOTE | 2017-07-15 07:51 | SOAPPROG ---
SOAP Progress Note Assessment/Plan: Assessment: Assessment:62 yo M POD #2 redo left temporal craniotomy for resection of recurrent astrocytoma Ongoing expressive dysphasia today Plan: MRI today DC Subgaleal HERNANDO PT/OT/ST on decadron on keppra please call with neuro changes discussed with Dr Harrison who saw and examined the patient this AM Subjective: awake, alert, comfortable. He is frustrated with his inability to get words out. No new issues. Objective: Vital Signs Temp Pulse Resp BP Pulse Ox 36.5 C 71 16 147/78 H 94 07/15/17 07:20 07/15/17 07:20 07/15/17 07:20 07/15/17 07:20 07/15/17 07:20 Laboratory Results 07/14/17 03:10 07/14/17 03:10 07/14/17 07/15/17 07/16/17 05:59 05:59 05:59 Intake Total 3810 1950 Output Total 3170 1025 Balance 640 925 PT 13.6 SEC (12.0-15.0) 07/13/17 12:07 INR 1.02 (0.83-1.16) 07/13/17 12:07 Neuro; PERRLA EOMI, expressive dysphagia follows commands x 4 ext incision: Dressing Dry HERNANDO: 100ml. this was removed per instruction of Dr. Harrison ICD10 Worksheet Patient Problems: Problems Problem Status Onset Glioma Acute
[2017-07-15] MEDS: SENNOSIDES/DOCUSATE SODIUM TAB PO SCH ×2 (08:43→19:41)
[2017-07-15] MEDS: FAMOTIDINE 20 MG TAB PO SCH ×2 (08:43→19:41)
[2017-07-15] MEDS: levETIRAcetam 500 MG TAB PO SCH ×2 (08:44→19:40)
--- NOTE | 2017-07-15 12:13 | ASMTCMCOM ---
CM Note CM Note Notes: Spoke with Stella who states patient has been approved for inpatient rehab. However, patient may elect to go for psyber knife treatments on an outpatient basis and as a result, may want home health care for his PT/OT/SPL rehab. We will await direction from neurosurgery to see what the needs will be and how best to support the patient. Notified Stella that patient's rehab needs are changing. CM will follow. Date Signed: 07/15/2017 12:12 PM Electronically Signed By:Norma Hand LCSW
--- NOTE | 2017-07-15 16:42 | ASMTCMCOM ---
CM Note CM Note Notes: The d/c plan has changed to patient going home with the support of home health care while going for outpatient psyber knife treatments. Spoke with patient's who says both she and patient are happy with this plan. Left a message on [facility] referral line, as instructed by Hayley since it is close to 5:00 for them to review patient and determine if they can accept the referral. They will call the case investigator on duty on Tuesday. Lori, patient's prefers [facility] if possible. Contact [facility] to finalize any details prior to patient d/c'ing. CM will follow. Date Signed: 07/15/2017 04:41 PM Electronically Signed By:Norma Hand LCSW
--- NOTE | 2017-07-15 17:28 | SOAPPROG ---
SOAP Progress Note Assessment/Plan: Assessment: Glioblastoma. Status post repeat debulking of a very aggressive tumor. Surgery associated with small area of ischemia/stroke. Clinically stable. Main postop issue is his aphasic. This seems to be slightly improved today. Hemodynamics stable. Plan: Continue supportive care. Continue steroids, pain control as needed. Will discuss discharge plans with neuro surgery. It may be best for him to return home as soon as possible and be set up for initiation of CyberKnife treatments as soon as possible. Subjective: Still with significant word-finding problems. Otherwise doing well, ambulatory Objective: Vital Signs Temp Pulse Resp BP Pulse Ox 36.6 C 64 16 138/88 H 94 07/15/17 16:00 07/15/17 16:00 07/15/17 16:00 07/15/17 16:00 07/15/17 16:00 Laboratory Results 07/14/17 03:10 07/14/17 03:10 07/14/17 07/15/17 07/16/17 05:59 05:59 05:59 Intake Total 3810 1950 200 Output Total 3170 1025 Balance 640 925 200 PT 13.6 SEC (12.0-15.0) 07/13/17 12:07 INR 1.02 (0.83-1.16) 07/13/17 12:07 Physical Exam - Physical Exam General Appearance: alert, no apparent distress EENT: PERRL/EOMI Neck: normal inspection Respiratory: lungs clear Cardiac/Chest: regular rate, rhythm Abdomen: normal bowel sounds, non-tender, soft Skin: normal color, warm/dry Extremities: No pedal edema Neuro/Psych: no motor/sensory deficits, No cognition abnormalities ICD10 Worksheet Patient Problems: Problems Problem Status Onset Glioma Acute
[2017-07-16] MEDS: HYDROmorphONE/DILAUDID 2 MG TAB PO PRN ×2 (04:37→10:12)
[2017-07-16] MEDS: DEXAMETHASONE 4 MG TAB PO SCH ×2 (04:38→11:00)
--- NOTE | 2017-07-16 08:14 | NEUSURGPN ---
Date of Surgery: 07/13/17 Post Op Day: 3 Assessment/Plan: Assessment:62 yo M POD #3 redo left temporal craniotomy for resection of recurrent astrocytoma Ongoing expressive dysphasia today Plan: - neuro stable, continues to have speech difficulties - postop MRI: No residual abnormal enhancement. 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 Continues to have speech difficulties. Objective: Awake. Alert. PERRL. EOMI Facial expression symmetrical Expressive dysphagia Muscle strength full at 5/5 incision c/d/i Catheter Insertion Date: 07/13/17 Neurosurgery Physical Exam - Vitals, I&O, Labs I and O 07/15/17 07/16/17 07/17/17 05:59 05:59 05:59 Intake Total 1950 1100 Output Total 1025 Balance 925 1100 Intake: Oral (ml) 1950 1100 Output: Urine (ml) 925 Toilet 50 Urinal 875 HERNANDO Drain Output (ml) 100 Left Head Dallin Rhodes 100 Other: Intake Quantity Yes Sufficient Number of Voids Toilet 1 1 Number of Stools Toilet 0 2 Vital Signs Temp Pulse Resp BP Pulse Ox 36.9 C 57 L 16 141/90 H 96 07/16/17 03:45 07/16/17 03:45 07/16/17 03:45 07/16/17 03:45 07/16/17 03:45 Laboratory Results 07/14/17 03:10 07/14/17 03:10 ICD10 Worksheet Patient Problems: Problems Problem Status Onset Glioma Acute
[2017-07-16 08:18] VITALS: BP 132/86; PULSE 66; RESP 14; TEMP 98.2; O2SAT 97
--- NOTE | 2017-07-16 08:24 | PDIAF ---
- Diagnosis Diagnosis: Brain mass s/p resection Code Status: Full Code - Medication Management Discharge Medications: Medications to Continue on Transfer Herbals/Supplements -Info Only 1 ea PO DAILY 06/13/17 [Last Taken 07/10/17] Multivitamins [Multivitamin (*)] 1 each PO DAILY 06/13/17 [Last Taken 07/10/17] Tetrahydrozoline 0.05% [Visine (*)] 1 drop OP DAILY PRN 06/13/17 [Last Taken 12/21 10:00] Acetaminophen [Tylenol 325mg (*)] 650 mg PO Q4HRS PRN tab 06/15/17 [Last Taken 07/10/17] levETIRAcetam [Keppra 500 mg (*)] 750 mg PO BID #60 tab 06/15/17 [Last Taken 12/21 10:00] Dexamethasone [Decadron 2 MG (*)] 2 mg PO Q24H #20 tab 07/16/17 [Last Taken Unknown] HYDROmorphone HCL [Dilaudid 2 mg (*)] 2 - 4 mg PO Q4HRS PRN #60 tab 07/16/17 [ Last Taken Unknown] Discharge Medications: Refer to the Discharge Home Medication list for PRN reason. PICC Care - Routine: N/A - Orders Services needed: Home Care, Physical Therapy, Occupational Therapy, Speech Language Pathologist Home Care Face to Face: I certify that this patient was under my care and that I had the required [id number] encounter meeting the encounter requirements on the discharge day. My findings support the fact that the patient is homebound as defined in Home Care Face to Face Continued: CMS Chapter 7 Medicare Benefits Manual 30.1.1 , The condition of the patient is such that there exists a normal inability to leave home and consequently, leaving home would require a considerable and taxing effort. Diet Recommendation: no restrictions on diet Diet Texture: Regular Texture Diet, Thin Liquids Wound Care Instructions: OK to shower and get incision wet. Be gentle, no scrubbing. Sutures to be removed in the office in 2 weeks. - Follow Up Care Current Providers and Referrals: Mikayla Harrison DO [Doctor of Osteopathy] - follow up in 2 weeks Greyson Carbajal DO [Primary Care Provider] -
[2017-07-16] MEDS ORDERED: ENOXAPARIN 40 MG/0.4 ML SYR SC SCH (09:00)
[2017-07-16] MEDS: levETIRAcetam 500 MG TAB PO SCH (09:03)
[2017-07-16] MEDS: FAMOTIDINE 20 MG TAB PO SCH (09:04)
[2017-07-16] MEDS: SENNOSIDES/DOCUSATE SODIUM TAB PO SCH (09:04)
--- NOTE | 2017-07-16 12:01 | ASMTCMCOM ---
CM Note CM Note Notes: Confirmed pt address w Lori ([phone]) who reports while address demonstrates [place] on face sheet their home is in [facility]) so pt not in service area for [facility], updated supervisor irrigation RN Miguelina. Referral sent to [facility] in [employer] for OT/PT/RUNNER OUT. Date Signed: 07/16/2017 12:00 PM Electronically Signed By:SANTOS Paulino
[2017-07-17] MEDS ORDERED: DEXAMETHASONE 4 MG TAB PO SCH (20:00)
[2017-07-19] MEDS ORDERED: DEXAMETHASONE 2 MG TAB PO SCH (20:00)
[2017-07-21] MEDS ORDERED: DEXAMETHASONE 2 MG TAB PO SCH (20:00)
== END 2017-07-16 11:25 | disposition home health service (06) | DRG 25 ==
LOC: F3N 11:36 → F2N 16:14
PROVIDERS: ADMIT Neurological Surgery; ATTEND Neurological Surgery
PROC: 00B00ZX Excision of Brain, Open Approach, Diagnostic (ICD-10-PCS; principal; 2017-07-13 14:45)
PROC: 4A1004G Monitoring of Central Nervous Electrical Activity, Intraoperative, Open Approach (ICD-10-PCS; principal; 2017-07-13 14:45)
DX: C71.2 Malignant neoplasm of temporal lobe (principal); I63.9 Cerebral infarction, unspecified; Z87.891 Personal history of nicotine dependence
CPT/HCPCS: 92507-GN; 92523-GN; 97116-GP; 97162-GP; 97166-GO; 97530-GO; 97535-GO; A9585; C1713; J0171; J0697; J1100; J1170; J1580; J1650; J1953; J2001; J2250; J2405; J2704; J3010

== ENCOUNTER → 2017-07-31 | Outpatient (CLI) | payer OTHER | LOC: FIMAGING 14:37 | PROVIDERS: ATTEND Neurological Surgery | DX: G40.89 Other seizures (principal); I69.320 Aphasia following cerebral infarction; R94.02 Abnormal brain scan; Z86.011 Personal history of benign neoplasm of the brain; Z98.890 Other specified postprocedural states ==

== ENCOUNTER → 2017-08-25 | Outpatient (CLI) | payer OTHER | LOC: FIMAGING 13:21 | PROVIDERS: ATTEND Neurological Surgery | DX: Z08 Encounter for follow-up examination after completed treatment for malignant neoplasm (principal); Z85.841 Personal history of malignant neoplasm of brain; J34.1 Cyst and mucocele of nose and nasal sinus ==

== ENCOUNTER → 2017-11-11 | Outpatient (CLI) | payer OTHER ==
[~2017-11-11] MED LIST changes: -CEFUROXIME 1,500 MG in STERILE WATER INJ 17 ML IV ONE; +GADOBUTROL 10 ML VIAL IVP ONE
== END ==
LOC: FIMAGING 13:09
PROVIDERS: ATTEND Internal Medicine Hematology & Oncology
DX: C71.2 Malignant neoplasm of temporal lobe (principal); R93.8 Abnormal findings on diagnostic imaging of other specified body structures
CPT/HCPCS: A9585

== ENCOUNTER → 2017-12-20 | Outpatient (CLI) | payer OTHER | LOC: FIMAGING 12:13 | PROVIDERS: ATTEND Internal Medicine Hematology & Oncology | DX: C71.2 Malignant neoplasm of temporal lobe (principal); R60.9 Edema, unspecified | CPT/HCPCS: A9585 ==

== ENCOUNTER → 2018-02-14 | Outpatient (CLI) | payer OTHER | LOC: FIMAGING 07:10 | PROVIDERS: ATTEND Internal Medicine Hematology & Oncology | DX: Z08 Encounter for follow-up examination after completed treatment for malignant neoplasm (principal); Z85.841 Personal history of malignant neoplasm of brain | CPT/HCPCS: A9585 ==

== ENCOUNTER → 2018-04-11 | Outpatient (CLI) | payer OTHER | LOC: FIMAGING 13:05 | PROVIDERS: ATTEND Internal Medicine Hematology & Oncology | DX: C71.2 Malignant neoplasm of temporal lobe (principal) | CPT/HCPCS: A9585 ==

== ENCOUNTER → 2018-06-05 | Outpatient (CLI) | payer OTHER | LOC: FIMAGING 13:00 | PROVIDERS: ATTEND Internal Medicine Hematology & Oncology | DX: C71.2 Malignant neoplasm of temporal lobe (principal); H53.9 Unspecified visual disturbance | CPT/HCPCS: A9585 ==

== ENCOUNTER → 2018-06-12 | Outpatient (CLI) | payer OTHER | LOC: BRMIMAGING 13:12 | PROVIDERS: ATTEND Internal Medicine Hematology & Oncology | DX: N43.3 Hydrocele, unspecified (principal) | CPT/HCPCS: 76870-PO ==

== ENCOUNTER → 2018-11-20 | Outpatient (CLI) | payer OTHER | LOC: FIMAGING 14:06 ==